=== PATIENT | male | born 1985 | race African-American/Black ===

== ENCOUNTER 2018-03-02 17:20 | Emergency (ER) | payer MEDICAID ==
[~2018-03-02] VITALS: Ht 170.2 cm; Wt 126.4 kg
[~2018-03-02 17:20] MED LIST: AMBIEN10 MG PO; FLUTICASONE PRO16 GM NS; HYDROCODONE-APA1 TAB PO; KLONOPIN1 MG PO; LATUDA40 MG PO; MACRODANTIN100 MG PO; NEXIUM40 MG PO; PRINIVIL20 MG PO; SAPHRIS5 MG SL; VENTOLIN HFA18 GM INH
[2018-03-02 17:25] VITALS: Ht 170.2 cm; Wt 126.4 kg
[2018-03-02] MEDS ORDERED: VIBRAMYCIN 100100 MG PO (18:24)
[2018-03-02] MEDS ORDERED: TORADOL10 MG PO (18:24)
[2018-03-02 19:15] VITALS: BP 141/64
[2018-03-02] MEDS ORDERED: TAMIFLU75 MG PO (20:16)
[2018-03-02 20:23] LABS: BASOPHILS 0.6 % (0-2); EOSINOPHILS 0.6 % (0-7); HEMATOCRIT 39.6 % (42.0-54.0); HEMOGLOBIN 13.4 g/dL (13.5-17.5); IMMATURE GRANULOCYTES 0.3 % (0-5); LYMPHOCYTES 9.9 % (15-50); MCH 32.4 pg (26.0-34.0); MCHC 33.8 g/dL (31.0-37.0); MCV 95.9 fL (80.0-100.0); MEAN PLATELET VOLUME 10.2 fL (7.4-10.4); MONOCYTES 18.6 % (2-11); PLATELET COUNT 204 10x3/uL (130-400); RBC 4.13 10x6/uL (4.20-6.10); RDW 13.5 % (11.5-14.5); WBC 8.7 10x3/uL (4.8-10.8)
== END 2018-03-02 19:15 | disposition home or self-care (01) ==
LOC: D.ER 17:20
PROVIDERS: Family Medicine
DX: J11.1 Influenza due to unidentified influenza virus with other respiratory manifestations (principal); M54.5 Low back pain; R09.89 Other specified symptoms and signs involving the circulatory and respiratory systems; R05 Cough; Z86.73 Personal history of transient ischemic attack (TIA), and cerebral infarction without residual deficits; E11.9 Type 2 diabetes mellitus without complications; I10 Essential (primary) hypertension; F17.200 Nicotine dependence, unspecified, uncomplicated

== ENCOUNTER 2018-09-25 22:30 | Emergency (ER) | payer MEDICAID ==
[~2018-09-25] VITALS: Ht 170.2 cm; Wt 124.1 kg
[~2018-09-25 22:30] MED LIST changes: +TAMIFLU75 MG PO; +TORADOL10 MG PO; +VIBRAMYCIN 100100 MG PO
[2018-09-25 22:39] VITALS: BP 144/106; Ht 170.2 cm; Wt 124.1 kg
== END 2018-09-26 00:12 | disposition left against medical advice (07) ==
LOC: D.ER 22:30
DX: M54.5 Low back pain (principal)

== ENCOUNTER 2019-01-03 21:12 | Emergency (ER) | payer MEDICAID ==
[~2019-01-03] VITALS: Ht 170.2 cm; Wt 106.8 kg
[2019-01-03 21:19] VITALS: BP 132/90; Ht 170.2 cm; Wt 106.8 kg
[2019-01-03] MEDS ORDERED: ALLERGY SHOTS (21:21)
[2019-01-03] MEDS ORDERED: VITAMIN C500 M1 PO (21:21)
[2019-01-03] MEDS ORDERED: CYCLOBENZAPRINE10 MG PO (21:55)
[2019-01-03] MEDS ORDERED: NAPROSYN500 MG PO (21:55)
== END 2019-01-03 22:12 | disposition home or self-care (01) ==
LOC: D.ER 21:12
DX: S39.012A Strain of muscle, fascia and tendon of lower back, initial encounter (principal); V89.2XXA Person injured in unspecified motor-vehicle accident, traffic, initial encounter; Y93.9 Activity, unspecified; Y92.9 Unspecified place or not applicable; M62.838 Other muscle spasm; I10 Essential (primary) hypertension; Z72.0 Tobacco use

== ENCOUNTER 2020-05-05 14:35 | Emergency (ER) | payer MEDICAID ==
[~2020-05-05] VITALS: Ht 170.2 cm; Wt 131.1 kg
[~2020-05-05 14:35] MED LIST changes: +ALLERGY SHOTS; +CYCLOBENZAPRINE10 MG PO; +NAPROSYN500 MG PO; +VITAMIN C500 M1 PO
[2020-05-05 14:48] VITALS: BP 134/79; Ht 170.2 cm; Wt 131.1 kg
[2020-05-05 15:31] LABS: BASOPHILS 0.3 % (0-2); EOSINOPHILS 2.9 % (0-7); HEMATOCRIT 40.2 % (42.0-54.0); HEMOGLOBIN 13.1 g/dL (13.5-17.5); IMMATURE GRANULOCYTES 0.2 % (0-5); LYMPHOCYTE ABS# 2.07 10x3/uL (1.32-3.57); MCH 30.5 pg (26.0-34.0); MCHC 32.6 g/dL (31.0-37.0); MCV 93.5 fL (80.0-100.0); MEAN PLATELET VOLUME 10.3 fL (7.4-10.4); MONOCYTES 8.9 % (2-11); NEUTROPHIL ABS# 7.47 10x3/uL (1.78-5.38); NEUTROPHILS 68.7 % (40-80); RDW 15.1 % (11.5-14.5); WBC 10.9 10x3/uL (4.8-10.8)
[2020-05-05 15:33] LABS: PLATELET COUNT 249 10x3/uL (130-400)
[2020-05-05 15:37] LABS: CALC OSMOLALITY 280 mosm/kg (275-300); CALCIUM 8.9 mg/dL (8.5-10.1); CARBON DIOXIDE 31.1 mmol/L (21.0-32.0); CHLORIDE - SERUM 105 mmol/L (98-107); CREATININE - SERUM 1.5 mg/dL (0.6-1.3); GLUCOSE 106 mg/dL (74-106); POTASSIUM - SERUM 3.3 mmol/L (3.5-5.1); SODIUM 141 mmol/L (136-145); UREA NITROGEN 12 mg/dL (7-18); eGFR NON AFRICAN AMERICAN 57 mL/min (90-120)
[2020-05-05 15:46] LABS: ALBUMIN 3.9 g/dL (3.4-5.0); ALKALINE PHOSPHATASE 119 U/L (30-120); ALT (SGPT) 31 U/L (10-68); AMYLASE - SERUM 108 U/L (25-115); BILIRUBIN - TOTAL 0.27 mg/dL (0.2-1.3); LIPASE 79 U/L (73-393); PROTEIN - SERUM 7.4 g/dL (6.4-8.2)
[2020-05-05 15:48] LABS: TROPONIN-I < 0.017 ng/mL (0.000-0.060)
[2020-05-05 17:09] LABS: BILIRUBIN NEGATIVE (NEGATIVE); KETONE NEGATIVE (NEGATIVE); NITRITE NEGATIVE (NEGATIVE); UROBILINOGEN NORMAL mg/dL (< 2)
== END 2020-05-05 17:51 | disposition left against medical advice (07) ==
LOC: D.ER 14:35
PROVIDERS: Emergency Medicine
DX: R10.9 Unspecified abdominal pain (principal); R11.2 Nausea with vomiting, unspecified; Z53.29 Procedure and treatment not carried out because of patient's decision for other reasons; I10 Essential (primary) hypertension; Z72.0 Tobacco use